=== PATIENT | female | born 1975 | race Caucasian/White ===

== ENCOUNTER 2018-11-29 23:14 | Emergency (ER) | payer MEDICAID ==
[2018-11-29 23:22] VITALS: PULSE 90; RESP 14; TEMP 98.5; O2SAT 99
[2018-11-29] MEDS ORDERED: DiphenhydrAMINE 50 mg/ml Inj IM STA (23:28)
[2018-11-29] MEDS ORDERED: DiphenhydrAMINE 50 mg/ml Inj ONE (23:39)
--- NOTE | 2018-11-30 00:35 | C.PDOC ---
History Of Present Illness 43 year old female presents to the ED for evaluation of allergic reaction. 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 Patient states she took Benadryl at home and came to the ED. Patient denies fever, chills, SOB, wheezing, tongue swelling, nausea, vomit. Time Seen by Provider: 11/29/18 23:27 Chief Complaint (Nursing): Allergic Reaction History Per: Patient History/Exam Limitations: no limitations Onset/Duration Of Symptoms: Hrs Current Symptoms Are (Timing): Still Present Possible Cause: Medication Associated Symptoms: Skin Rash, Swelling Home/EMS Treatment: Benadryl Recent travel outside of the [place]: No Additional History Per: Patient Past Medical History Reviewed: Historical Data, Nursing Documentation, Vital Signs Vital Signs: Last Vital Signs Temp 98.5 F 11/29/18 23:18 Pulse 90 11/29/18 23:18 Resp 14 11/29/18 23:18 BP 180/90 H 11/29/18 23:18 Pulse Ox 99 11/29/18 23:18 Primary Care Provider: Jaden Armando Surg - Medical History PMH: No Chronic Diseases Surgical History: No Surg Hx Family History: States: Unknown Family Hx - Social History Hx Alcohol Use: No Hx Substance Use: No Review Of Systems Constitutional: Negative for: Fever, Chills, Weakness ENT: Positive for: Mouth Swelling (lip swelling, no tongue or throat swelling sensation) Respiratory: Negative for: Cough, Shortness of Breath, Wheezing Gastrointestinal: Negative for: Vomiting, Diarrhea Skin: Positive for: Rash Neurological: Negative for: Weakness, Numbness Physical Exam - Physical Exam Appears: Non-toxic, No Acute Distress Skin: Warm, Dry, Rash (erythematous, papular rash to arms, and torso) Head: Atraumatic, Normacephalic Eye(s): bilateral: Normal Inspection, PERRL, EOMI, left: Other (mild upper lid swelling) Ear(s): Bilateral: Normal Nose: Normal Oral Mucosa: Moist, No Drooling Tongue: No Swelling Lips: Swelling (minimal) Throat: Normal (no swelling or injection), No Erythema, No Exudate, Other (airway patent) Neck: Normal ROM, Supple Chest: Symmetrical Respiratory: No Accessory Muscle Use, Other (normal inspiratory effort) Neurological/Psych: Oriented x3, Normal Speech ED Course And Treatment O2 Sat by Pulse Oximetry: 99 (ON RA) Pulse Ox Interpretation: Normal Medical Decision Making Medical Decision Making: Plan: * Benadryl 25 mg PO * Prednisone 60 mg PO patients symptoms subsided prior to discharge. she was educated on how to use an epipen. she was in no acute distress upon leaving. 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 - Scribe Statement The provider has reviewed the documentation as recorded by the Scribsuzie Martinez All medical record entries made by the Scribsuzie were at my direction and personally dictated by me. I have reviewed the chart and agree that the record accurately reflects my personal performance of the history, physical exam, medical decision making, and the department course for this patient. I have also personally directed, reviewed, and agree with the discharge instructions and disposition.
[2018-11-30 00:42] VITALS: BP 153/90
== END 2018-11-30 00:50 | disposition home or self-care (01) ==
LOC: C.ER 23:14
DX: L50.0 Allergic urticaria (principal)
CPT/HCPCS: 96372; 99284; J1200